=== PATIENT | male | born 1945 | race Caucasian/White ===

== ENCOUNTER → 2017-04-12 | Outpatient (CLI) | payer BC | LOC: M ADAMS 12:00 | DX: J20.9 Acute bronchitis, unspecified (principal); R05 Cough | CPT/HCPCS: 71046 ==

== ENCOUNTER 2024-05-20 14:04 | Emergency (ER) | payer OTHER, BC ==
[~2024-05-20] VITALS: Ht 170.2 cm; Wt 79.0 kg
[~2024-05-20 14:04] MED LIST: ECOT81TA5 PO; LISI10TA22 PO; OMEP40CA4 PO; ROSU40TA81 PO
[2024-05-20 15:43] LABS: HEMOGLOBIN 15.4 g/dl (13.5-17.5); MEAN CORPUSCULAR HEMOGLOBIN 28.6 pg (27.0-33.0); MEAN CORPUSCULAR HGB CONC 33.5 g/dl (32.0-36.5); MEAN CORPUSCULAR VOLUME 85.5 fl (80.0-96.0); PLATELET COUNT, AUTOMATED 130 10^3/uL (150-450); RED BLOOD COUNT 5.38 10^6/uL (4.30-6.10); WHITE BLOOD COUNT 13.6 10^3/uL (4.0-10.0)
[2024-05-20 16:09] LABS: ATYPICAL LYMPH 34 % (0-5); EOSINOPHILS 1 % (0-3); LYMPHOCYTES 8 % (16-44); MONOCYTES 1 % (0-5); NEUTROPHILS 55 % (28-66); PLATELET ESTIMATE DECREASED (NORMAL)
[2024-05-20 16:10] LABS: SMUDGE CELLS 2+
[2024-05-20 16:12] LABS: BLOOD UREA NITROGEN 20 MG/DL (9-23); CALCIUM LEVEL 9.6 MG/DL (8.3-10.6); CARBON DIOXIDE LEVEL 29 MMOL/L (20-31); CHLORIDE LEVEL 106 MMOL/L (98-107); GLOMERULAR FILTRATION RATE > 60.0 (>42); GLUCOSE, FASTING 102 MG/DL (74-106); POTASSIUM SERUM 4.9 MMOL/L (3.5-5.1); SODIUM LEVEL 143 MMOL/L (136-145)
[2024-05-20 16:29] LABS: CK-MB VALUE MASS 1.9 NG/ML (<3.6)
[2024-05-20 16:44] LABS: CPK CREATINE PHOSPHOKINASE 112 U/L (46-171); MB/CK RELATIVE INDEX 1.69 (< OR =4)
[2024-05-20] MEDS: ASPIRIN 81MG CHEW TABLET PO ONE (17:17)
[2024-05-20 17:19] LABS: CK-MB VALUE MASS 1.8 NG/ML (<3.6)
[2024-05-20 17:22] LABS: CPK CREATINE PHOSPHOKINASE 106 U/L (46-171); MB/CK RELATIVE INDEX 1.69 (< OR =4)
[2024-05-20 18:18] VITALS: BP 145/71; TEMP 97.6; O2SAT 95
== END 2024-05-20 18:32 | disposition home or self-care (01) ==
LOC: M ED 14:04
DX: R07.9 Chest pain, unspecified (principal); R00.1 Bradycardia, unspecified; I10 Essential (primary) hypertension; E78.5 Hyperlipidemia, unspecified; C44.92 Squamous cell carcinoma of skin, unspecified; C44.91 Basal cell carcinoma of skin, unspecified; E80.4 Gilbert syndrome; Z79.1 Long term (current) use of non-steroidal anti-inflammatories (NSAID); Z79.899 Other long term (current) drug therapy